=== PATIENT | female | born 1955 | race African-American/Black ===

== ENCOUNTER 2021-02-20 16:48 | Inpatient (IN) | payer OTHER ==
[~2021-02-20] VITALS: Ht 175.3 cm; Wt 73.7 kg
[2021-02-20 18:02] LABS: BASOPHIL 0.3 % (0-2); EOSINOPHIL 0 % (0-7); HCT 43.4 % (37.0-47.0); HGB 14.8 g/dl (12.5-16.0); LYMPHOCYTE 18.7 % (15-48); MCH 30.3 pg (25.0-31.0); MCHC 34.1 g/dL (32.0-36.0); MCV 88.8 fL (78.0-100.0); MONOCYTE 6.4 % (0-12); MPV 8.4 fL (6.0-9.5); NEUTROPHIL 74.2 % (41-80); NRBC 0; PLT 332 K/uL (150-400); RBC 4.89 M/uL (4.20-5.40); RDW 14.2 % (11.5-14.0); WBC 10.9 K/uL (4.0-10.5)
[2021-02-20 18:20] LABS: INR 1.04 (0.9-1.2)
[2021-02-20 18:21] LABS: PTT 33.7 SECONDS (24.4-34.7)
[2021-02-20 18:33] LABS: ALBUMIN 3.4 g/dL (3.4-5.0); BILIRUBIN - TOTAL 0.8 mg/dL (0.2-1.0); BUN/CREAT RATIO (CALC) 12.5 RATIO; CREATININE 0.48 mg/dL (0.51-0.95); GLOBULIN (CALCULATION) 4.6 g/dL; MAGNESIUM 1.5 mg/dL (1.8-2.4); POTASSIUM 3.5 mmol/L (3.5-5.1)
[2021-02-20 18:34] LABS: PRO-BNP 188 pg/mL (<125)
[2021-02-20 18:39] LABS: LACTIC ACID 1.6 mmol/L (0.4-1.9)
[2021-02-20 19:39] LABS: BILIRUBIN NEGATIVE (NEGATIVE); BLOOD TRACE-INTACT Ery/uL (NEGATIVE); CLARITY CLEAR (CLEAR); COLOR YELLOW (YELLOW); GLUCOSE (U) NORMAL (NORMAL); LEUKOCYTES NEGATIVE Leu/uL (NEGATIVE); NITRITE POSITIVE (NEGATIVE); PROTEIN NEGATIVE (NEGATIVE); UROBILINOGEN 0.2 mg/dL (0.2-1.0)
[2021-02-20 19:48] LABS: BACTERIA 4+
[2021-02-20 19:49] LABS: AMORPHOUS URATES CRYSTALS MODERATE; URINARY RBC RARE
[2021-02-21 05:52] LABS: BASOPHIL 0.2 % (0-2); EOSINOPHIL 0 % (0-7); HCT 36.5 % (37.0-47.0); HGB 12.4 g/dl (12.5-16.0); LYMPHOCYTE 16.2 % (15-48); MCH 30.5 pg (25.0-31.0); MCV 89.7 fL (78.0-100.0); MONOCYTE 4.1 % (0-12); MPV 8.5 fL (6.0-9.5); NRBC 0; PLT 306 K/uL (150-400); RBC 4.07 M/uL (4.20-5.40); RDW 14.1 % (11.5-14.0)
[2021-02-21 06:14] LABS: ALBUMIN 2.4 g/dL (3.4-5.0); BILIRUBIN - TOTAL 0.4 mg/dL (0.2-1.0); BUN/CREAT RATIO (CALC) 19.5 RATIO; CREATININE 0.41 mg/dL (0.51-0.95); GLOBULIN (CALCULATION) 4.5 g/dL; PHOSPHORUS 3.7 mg/dL (2.6-4.7); POTASSIUM 3.7 mmol/L (3.5-5.1); TOTAL PROTEIN 6.9 g/dL (6.4-8.2)
[2021-02-21 06:17] LABS: MAGNESIUM 2.6 mg/dL (1.8-2.4)
[2021-02-21] MEDS ORDERED: TRAZODONE 50MG50 MG PO (09:52)
[2021-02-21] MEDS ORDERED: FOLIC ACID1 M1 PO (09:53)
[2021-02-21] MEDS ORDERED: SERTRALINE HCL25 MG PO (09:53)
[2021-02-21] MEDS ORDERED: CYCLOBENZAPRINE10 MG PO (09:54)
[2021-02-21] MEDS ORDERED: TESSALON PERLE100 MG PO (09:55)
[2021-02-21 16:20] LABS: BUN/CREAT RATIO (CALC) 26.4 RATIO; CREATININE 0.53 mg/dL (0.51-0.95); POTASSIUM 3.6 mmol/L (3.5-5.1)
[2021-02-24] MEDS ORDERED: VENTOLIN HFA IN18 GM INH (10:49)
[2021-02-24] MEDS ORDERED: CEFDINIR300 MG PO (10:49)
[2021-02-24] MEDS ORDERED: AZITHROMYCIN250 MG PO (10:49)
[2021-02-24] MEDS ORDERED: PREDNISONE 20MG20 MG PO (10:49)
--- NOTE | 2021-02-24 15:34 | NUR ---
02/24/21 A referral was made to [facility] home 02 per patient choice.
== END 2021-02-24 12:30 | disposition home or self-care (01) | DRG 193 ==
LOC: FER 16:48 → FMS 19:41 → FER 19:58 → FMS 02-23 17:13
PROVIDERS: Allergy & Immunology Allergy; Emergency Medicine; Nurse Practitioner; ADMIT Internal Medicine
DX: J18.0 Bronchopneumonia, unspecified organism (principal); J96.01 Acute respiratory failure with hypoxia; N39.0 Urinary tract infection, site not specified; J44.0 Chronic obstructive pulmonary disease with (acute) lower respiratory infection; J44.1 Chronic obstructive pulmonary disease with (acute) exacerbation; E87.1 Hypo-osmolality and hyponatremia; R31.9 Hematuria, unspecified; Z79.899 Other long term (current) drug therapy; Z20.822 Contact with and (suspected) exposure to COVID-19; F41.9 Anxiety disorder, unspecified; F32.9 Major depressive disorder, single episode, unspecified; F17.210 Nicotine dependence, cigarettes, uncomplicated
CPT/HCPCS: 36415; 36600; 71250; 80048; 80053; 81001; 82803; 83036; 83605; 83615; 83735; 83880; 84100; 84145; 84443; 84484; 85025; 85610; 85730; 87040; 87088; 93005; 94010; 94640; 94664; 94760; J0456; J0696; J1650; J2543; J2930; J3475; J7030; J7050; U0002

== ENCOUNTER 2021-03-04 06:39 | Day surgery (SDCO) | payer MEDICARE, OTHER ==
[~2021-03-04] VITALS: Ht 154.9 cm; Wt 61.4 kg
[~2021-03-04 06:39] MED LIST: AZITHROMYCIN250 MG PO; CEFDINIR300 MG PO; CYCLOBENZAPRINE10 MG PO; FOLIC ACID1 M1 PO; PREDNISONE 20MG20 MG PO; SERTRALINE HCL25 MG PO; TESSALON PERLE100 MG PO; TRAZODONE 50MG50 MG PO; VENTOLIN HFA IN18 GM INH
[2021-03-04 15:50] LABS: BASOPHIL 0.2 % (0-2); EOSINOPHIL 0.1 % (0-7); HCT 40.1 % (37.0-47.0); HGB 12.6 g/dl (12.5-16.0); LYMPHOCYTE 6.7 % (15-48); MCHC 31.4 g/dL (32.0-36.0); MPV 8.6 fL (6.0-9.5); NEUTROPHIL 89.5 % (41-80); NRBC 0; PLT 382 K/uL (150-400); WBC 18.8 K/uL (4.0-10.5)
[2021-03-04 15:51] LABS: MCV 95.5 fL (78.0-100.0)
[2021-03-04 16:29] LABS: IRON % SATURATION 9.8 %SAT (20-50)
[2021-03-04 16:58] LABS: BILIRUBIN - TOTAL 0.4 mg/dL (0.2-1.0); BUN/CREAT RATIO (CALC) 9.3 RATIO; CREATININE 0.54 mg/dL (0.51-0.95); GLOBULIN (CALCULATION) 3.7 g/dL; MAGNESIUM 1.9 mg/dL (1.8-2.4); PHOSPHORUS 3.5 mg/dL (2.6-4.7); POTASSIUM 4.1 mmol/L (3.5-5.1); TOTAL PROTEIN 6.7 g/dL (6.4-8.2)
[2021-03-05 07:06] LABS: BUN/CREAT RATIO (CALC) 16.7 RATIO; CREATININE 0.54 mg/dL (0.51-0.95); MAGNESIUM 1.9 mg/dL (1.8-2.4); POTASSIUM 4.8 mmol/L (3.5-5.1)
[2021-03-05 07:31] LABS: BASOPHIL 0.1 % (0-2); EOSINOPHIL 0 % (0-7); HCT 38.5 % (37.0-47.0); HGB 12.4 g/dl (12.5-16.0); MCH 29.7 pg (25.0-31.0); MCHC 32.2 g/dL (32.0-36.0); MCV 92.3 fL (78.0-100.0); MONOCYTE 0.8 % (0-12); MPV 8.8 fL (6.0-9.5); NEUTROPHIL 92.1 % (41-80); NRBC 0; PLT 386 K/uL (150-400); RBC 4.17 M/uL (4.20-5.40); RDW 14.6 % (11.5-14.0); WBC 13.8 K/uL (4.0-10.5)
[2021-03-05 07:34] LABS: LYMPHOCYTE 6.6 % (15-48)
[2021-03-05 17:50] LABS: BASOPHIL 0.1 % (0-2); EOSINOPHIL 0 % (0-7); HCT 36.3 % (37.0-47.0); HGB 11.3 g/dl (12.5-16.0); MCH 29.7 pg (25.0-31.0); MCHC 31.1 g/dL (32.0-36.0); MCV 95.3 fL (78.0-100.0); MONOCYTE 2.9 % (0-12); MPV 8.9 fL (6.0-9.5); NEUTROPHIL 90.2 % (41-80); NRBC 0; PLT 388 K/uL (150-400); RBC 3.81 M/uL (4.20-5.40); WBC 18.5 K/uL (4.0-10.5)
[2021-03-06 05:51] LABS: BASOPHIL 0.1 % (0-2); EOSINOPHIL 0 % (0-7); HCT 32.1 % (37.0-47.0); HGB 10.1 g/dl (12.5-16.0); LYMPHOCYTE 11.5 % (15-48); MCH 30.2 pg (25.0-31.0); MCHC 31.5 g/dL (32.0-36.0); MCV 96.1 fL (78.0-100.0); MONOCYTE 6.2 % (0-12); NEUTROPHIL 81.3 % (41-80); NRBC 0; PLT 344 K/uL (150-400); RBC 3.34 M/uL (4.20-5.40); RDW 15.2 % (11.5-14.0)
[2021-03-06 06:13] LABS: ALBUMIN 2.5 g/dL (3.4-5.0); BILIRUBIN - TOTAL 0.2 mg/dL (0.2-1.0); BUN/CREAT RATIO (CALC) 19.6 RATIO; CREATININE 0.51 mg/dL (0.51-0.95); GLOBULIN (CALCULATION) 3.4 g/dL; MAGNESIUM 1.9 mg/dL (1.8-2.4); POTASSIUM 4.1 mmol/L (3.5-5.1); TOTAL PROTEIN 5.9 g/dL (6.4-8.2)
[2021-03-06] MEDS ORDERED: MEDROL 4MG DOSEP4 MG PO (11:13)
[2021-03-06] MEDS ORDERED: DULERA 200 MCG8.8 GM INH (11:13)
[2021-03-06] MEDS ORDERED: AUGMENTIN 875-1 EACH PO (11:13)
[2021-03-06] MEDS ORDERED: POLY-IRON150 MG PO (11:13)
[2021-03-06] MEDS ORDERED: SINGULAIR10 MG PO (11:13)
--- NOTE | 2021-03-06 11:14 | NUR ---
03/06/21 Ms. Ahumada lives at home with her sister. She has home 02. A referral was made to [facility] per patient request. Report given to NATHEN Bowden RN. Patient has requested a pulse-oximeter. Dr. Sanchez agrees; section housekeeper was notified.
== END 2021-03-06 13:10 | disposition home health service (06) ==
LOC: FAS 06:39 → FTCU 12:27 → FAS 14:58 → FTCU 14:59
PROVIDERS: ADMIT Internal Medicine
DX: Z12.11 Encounter for screening for malignant neoplasm of colon (principal); D12.5 Benign neoplasm of sigmoid colon; D12.4 Benign neoplasm of descending colon; K57.30 Diverticulosis of large intestine without perforation or abscess without bleeding; J96.01 Acute respiratory failure with hypoxia; J43.2 Centrilobular emphysema; E87.2 Acidosis; D50.9 Iron deficiency anemia, unspecified; M06.9 Rheumatoid arthritis, unspecified; F17.210 Nicotine dependence, cigarettes, uncomplicated; Z87.891 Personal history of nicotine dependence; Z99.81 Dependence on supplemental oxygen; Z79.899 Other long term (current) drug therapy
CPT/HCPCS: 36415; 36600; 71045; 71046; 80048; 80053; 82607; 82803; 83540; 83550; 83605; 83735; 83880; 84100; 84145; 85025; 94010; 94640; 94667; 94668; G0378; J0500; J1650; J2543; J2704; J2916; J2930; J3370; J7050; J7120

== ENCOUNTER 2021-12-03 13:06 | Emergency (ER) | payer MEDICARE ==
[~2021-12-03 13:06] MED LIST changes: +AUGMENTIN 875-1 EACH PO; +DULERA 200 MCG8.8 GM INH; +MEDROL 4MG DOSEP4 MG PO; +POLY-IRON150 MG PO; +SINGULAIR10 MG PO
[2021-12-03] MEDS ORDERED: NORCO 5-325 TA1 EACH PO (14:17)
[2021-12-03] MEDS ORDERED: VALACYCLOVIR1000 MG PO (14:35)
== END 2021-12-03 15:01 | disposition home or self-care (01) ==
LOC: FER 13:06
DX: B02.9 Zoster without complications (principal)
CPT/HCPCS: 99282; J1885

== ENCOUNTER → 2022-01-20 | Day surgery (SDC) | payer MEDICARE, OTHER ==
[~2022-01-20] VITALS: Ht 154.9 cm; Wt 61.4 kg
[~2022-01-20] MED LIST changes: +NORCO 5-325 TA1 EACH PO; +NORFLEX100 MG PO; +RINVOQ ER15 MG PO; +VALACYCLOVIR1000 MG PO
== END | disposition home or self-care (01) ==
LOC: FAS 10:31
DX: D12.2 Benign neoplasm of ascending colon (principal); D12.5 Benign neoplasm of sigmoid colon; K57.30 Diverticulosis of large intestine without perforation or abscess without bleeding; Z86.010 Personal history of colon polyps; Z90.49 Acquired absence of other specified parts of digestive tract; Z79.899 Other long term (current) drug therapy
CPT/HCPCS: J1610; J2250; J2704; J7120